=== PATIENT | female | born 1930 | race Caucasian/White ===

== ENCOUNTER 2019-10-17 15:44 | Inpatient (IN) | payer MEDICARE, BC ==
[~2019-10-17] VITALS: Ht 157.5 cm; Wt 56.7 kg
--- NOTE | 2019-10-17 15:50 | NUR ---
PATIENT WAS BIB [facility]. FOR UNWITNESSED FALL WAS FOUND ON THE GROUND. NO KO. NO S/S ANY PAIN NOTED.
--- NOTE | 2019-10-17 15:52 | NUR ---
PATIENT WAS MSE BY DR LOZANO IN ROOM 03A.
[2019-10-17 16:24] LABS: *BILIRUBIN,URIN NEGATIVE (NEGATIVE); *BLOOD, URINE NEGATIVE (NEGATIVE); *CLARITY,URINE CLOUDY (CLEAR); *COLOR,URINE YELLOW (YELLOW); *KETONES,URINE NEGATIVE (NEGATIVE); LEUKOCYTE ESTERASE ,URINE 2+ (NEGATIVE); NITRITE, URINE NEGATIVE (NEGATIVE); PH,URINE >=9.0 (5.0-8.0); UGLUCOSE NEGATIVE (NEGATIVE)
[2019-10-17 16:32] LABS: BASOPHILS # (AUTO) 0.2 K/uL (0.0-8.0); BASOPHILS % (AUTO) 1.3 % (0.0-2.0); EOSINOPHILS # (AUTO) 0.1 K/uL (0.0-0.7); HEMATOCRIT 46.5 % (31.2-41.9); HEMOGLOBIN 15.6 g/dL (10.9-14.3); LYMPHOCYTES # (AUTO) 2.3 K/uL (20.0-40.0); LYMPHOCYTES % (AUTO) 16.5 % (20.5-51.5); MEAN CORPUSCULAR HEMOGLOBIN 26.9 uug (24.7-32.8); MEAN CORPUSCULAR HGB CONC 34 g/dL (32.3-35.6); MEAN CORPUSCULAR VOLUME 79.9 fL (75.5-95.3); MONOCYTES # (AUTO) 0.6 K/uL (2.0-10.0); MONOCYTES % (AUTO) 4.2 % (0.0-11.0); NEUTROPHILS # (AUTO) 10.7 K/uL (1.8-8.9); PLATELET COUNT (AUTO) 270 K/uL (179-408); RED BLOOD CELL COUNT(AUTO) 5.82 MIL/uL (3.63-4.92)
[2019-10-17 16:34] LABS: BACTERIA,URINE MANY /HPF (NONE SEEN); MUCUS,URINE MANY /LPF (0-FEW); SQUAMOUS EPITHELIAL CELL,UR FEW /HPF (NONE SEEN); TRIPLE PHOSPHATE CRYSTAL,UR MANY /HPF (NONE SEEN); WBC,URINE 20-50 /HPF (0-3)
[2019-10-17 16:34] LABS: CREATININE 0.7 mg/dL (0.6-1.3); POTASSIUM 3.2 mmol/L (3.5-5.1)
[2019-10-17 16:42] LABS: BILIRUBIN,DIRECT 0.2 mg/dL (0.0-0.2); BILIRUBIN,TOTAL 1.1 mg/dL (0.2-1.0); TOTAL PROTEIN, SERUM 7.3 g/dL (6.4-8.2)
[2019-10-17] MEDS ORDERED: CEFTRIAXONE 1 G in IV DEXTROSE 5% 50 ML IV ONE (16:45)
[2019-10-17] MEDS ORDERED: IV NS + KCL 40 MEQ 1000 ML BAG IV ONE (16:45)
[2019-10-17] MEDS: POTASSIUM CHLORIDE 40 MEQ in IV NS 1000 ML 1,000 ML IV ONE ×2 (17:15→17:54)
[2019-10-17] MEDS ORDERED: CEFTRIAXONE /D5W 50ML IVPB **ER PYXIS IV ONE (17:18)
--- NOTE | 2019-10-17 17:48 | NUR ---
DR HERNÁNDEZ CALLED BACK SPOKE WITH DR LOZANO PATIENT WAS ACCEPTED FOR ADMISSION.
--- NOTE | 2019-10-17 18:00 | NUR ---
PATIENT IN BED FALL PRECAUTIONS DONE.
--- NOTE | 2019-10-17 19:10 | NUR ---
REPORT GIVE GIVEN TO INCOMING NURSE
--- NOTE | 2019-10-17 19:35 | NUR ---
Received report from AM ER nurse @ 1344. Pending admission. Pt already admitted to Tele, Report was given to Nurse Adeola per AM ER Nurse. Perineal care started, patient with 1x BM, yellowish soft BM. Pt received alert but does not appear oriented. Minimally verbal. Not in any distress. VS taken, admission process initiated.
--- NOTE | 2019-10-17 20:06 | NUR ---
Report given to Vinayak PIÑA for Tele admission.
--- NOTE | 2019-10-17 20:25 | NUR ---
Pt trasnported to Room 314 via gurney in stable condition. Proper precautions followed.
--- NOTE | 2019-10-17 20:30 | NUR ---
Received patient from ER @2024 via [employer]. She was taken to the ER via [facility] after being found on the floor on her back. She has a bruise on the back of the head, and no acute abnormalities were seen in x-ray or CT. Patient was found to have a UTI. Patient is awake and alert, however she is very soft spoken and somewhat confused due to dementia. She arrived on room air without any oxygen and no SOB or distress noted. peripheral IV in the left AC running 0.9% NS +40KCl @75ml/hr. Donato catheter in place due to history of retention. had 2 yellow BMs in the ER. Patient is otherwise in stable condition. This patient comes from [facility], a facility that has sent us COVID-19 positive patients, so as a precaution a chest x-ray was conducted and slight abnormalities were noted within the lung ward, and as such she is on rule out for COVID-19. Special droplet/contact precautions in place.
[2019-10-17 20:40] VITALS: BP 204/83
[2019-10-17] MEDS ORDERED: BISACODYL 10 MG SUPP.RECT RC PRN (20:45)
[2019-10-17] MEDS ORDERED: LORAZEPAM 2 MG/1 ML VIAL IV PRN (20:45)
[2019-10-17] MEDS ORDERED: POLYVINYL ALCOHOL OPHT DROPS 15 ML BOTTLE EACHEYE PRN (20:45)
[2019-10-17] MEDS ORDERED: ACETAMINOPHEN 325 MG TABLET PO PRN (20:45)
[2019-10-17] MEDS ORDERED: MORPHINE SULFATE 2 MG/1 ML DISP.SYRIN IV PRN (20:45)
[2019-10-17] MEDS: METOPROLOL TARTRATE 25 MG TABLET PO SCH (22:27)
[2019-10-17] MEDS: POTASSIUM CHLORIDE 20 MEQ in IV 1/2NS 1000 ML 1,000 ML IV PRN (23:18)
[2019-10-18 00:18] VITALS: BP 149/72
[2019-10-18 04:18] VITALS: BP 136/60
[2019-10-18 06:27] LABS: BASOPHILS # (AUTO) 0.1 K/uL (0.0-8.0); BASOPHILS % (AUTO) 0.6 % (0.0-2.0); EOSINOPHILS # (AUTO) 0.2 K/uL (0.0-0.7); EOSINOPHILS % (AUTO) 2.2 % (0.0-7.0); HEMATOCRIT 43.5 % (31.2-41.9); HEMOGLOBIN 14.6 g/dL (10.9-14.3); LYMPHOCYTES # (AUTO) 2.3 K/uL (20.0-40.0); LYMPHOCYTES % (AUTO) 23.1 % (20.5-51.5); MEAN CORPUSCULAR HEMOGLOBIN 26.9 uug (24.7-32.8); MEAN CORPUSCULAR HGB CONC 34 g/dL (32.3-35.6); MEAN CORPUSCULAR VOLUME 80.3 fL (75.5-95.3); MONOCYTES # (AUTO) 0.5 K/uL (2.0-10.0); NEUTROPHILS % (AUTO) 69.1 % (38.5-71.5); PLATELET COUNT (AUTO) 243 K/uL (179-408); RED BLOOD CELL COUNT(AUTO) 5.42 MIL/uL (3.63-4.92)
[2019-10-18] MEDS: LEVOTHYROXINE SODIUM 137 MCG TABLET PO SCH (06:37)
[2019-10-18 06:42] LABS: WHITE BLOOD COUNT (AUTO) 10.1 K/uL (3.8-11.8)
[2019-10-18 06:48] LABS: THYROID STIMULATING HORMONE 0.386 mIU/mL (0.358-3.740)
[2019-10-18 06:51] LABS: BILIRUBIN,TOTAL 1.3 mg/dL (0.2-1.0); CREATININE 0.8 mg/dL (0.6-1.3); PHOSPHOROUS 2.7 mg/dL (2.5-4.9); POTASSIUM 3.1 mmol/L (3.5-5.1); TOTAL PROTEIN, SERUM 6.5 g/dL (6.4-8.2)
[2019-10-18 06:54] LABS: MAGNESIUM 1.2 mg/dL (1.8-2.4)
[2019-10-18] MEDS: PANTOPRAZOLE SODIUM 40 MG VIAL IV SCH (08:53)
[2019-10-18] MEDS: METOPROLOL TARTRATE 25 MG TABLET PO SCH (08:54)
[2019-10-18] MEDS: GLUCERNA SHAKE VANILLA 237 ML CAN PO SCH ×2 (08:55→17:26)
[2019-10-18] MEDS ORDERED: POTASSIUM CHLORIDE 20 MEQ TAB.PRT.SR PO ONE (09:30)
[2019-10-18] MEDS: MAGNESIUM SULFATE/D5W 100 ML IV SCH ×3 (09:40→12:45)
[2019-10-18] MEDS: METFORMIN HCL 500 MG TABLET PO SCH (12:44)
[2019-10-18 16:10] VITALS: BP 156/66
[2019-10-18] MEDS: CEFTRIAXONE 1 G in IV DEXTROSE 5% 50 ML IV SCH (17:25)
--- NOTE | 2019-10-18 18:49 | NUR ---
PATIENT CALM AND COMFORTABLE THROUGH OUT SHIFT; PATIENT TESTED NEGATIVE COVID UPON MORNING ASSESSMENT; PATIENT WITH STABLE VITAL SIGNS; PATIENT MEDICATION COMPLIANT; PATIENT AT BASELINE MENTAL STATUS ;REPORT GIVEN TO ON COMING NURSE.
[2019-10-18 20:21] VITALS: BP 197/67
[2019-10-18] MEDS: POTASSIUM CHLORIDE 20 MEQ in IV 1/2NS 1000 ML 1,000 ML IV PRN (20:55)
--- NOTE | 2019-10-18 21:00 | NUR ---
Received patient in bed awake, A&Ox1. Patient noted w/ sacral abrasion on L buttocks, R heel nonblanchable redness, wound on L posterior foot and L 2nd toe and R great toe and redness on L and R groin and abdominal fold, no pictures on the chart. All pictures taken and placed on chart for proper documentation
[2019-10-18 21:02] VITALS: BP 146/62
[2019-10-19] VITALS (7 sets, daily range): BP systolic 131–178; BP diastolic 58–71
[2019-10-19] MEDS: hydrALAZINE HCL 25 MG TABLET PO PRN (00:06)
[2019-10-19] MEDS ORDERED: Z GUARD REMEDY PASTE 57 GM TUBE TOP PRN (03:00)
[2019-10-19] MEDS: LEVOTHYROXINE SODIUM 137 MCG TABLET PO SCH (06:21)
[2019-10-19 06:43] LABS: BASOPHILS # (AUTO) 0.1 K/uL (0.0-8.0); BASOPHILS % (AUTO) 0.5 % (0.0-2.0); EOSINOPHILS # (AUTO) 0.2 K/uL (0.0-0.7); EOSINOPHILS % (AUTO) 2.3 % (0.0-7.0); HEMATOCRIT 41.6 % (31.2-41.9); HEMOGLOBIN 13.8 g/dL (10.9-14.3); LYMPHOCYTES # (AUTO) 2.1 K/uL (20.0-40.0); MEAN CORPUSCULAR HEMOGLOBIN 26.7 uug (24.7-32.8); MEAN CORPUSCULAR HGB CONC 33 g/dL (32.3-35.6); MEAN CORPUSCULAR VOLUME 80.4 fL (75.5-95.3); MONOCYTES # (AUTO) 0.5 K/uL (2.0-10.0); MONOCYTES % (AUTO) 4.6 % (0.0-11.0); NEUTROPHILS % (AUTO) 71.6 % (38.5-71.5); PLATELET COUNT (AUTO) 238 K/uL (179-408); RED BLOOD CELL COUNT(AUTO) 5.18 MIL/uL (3.63-4.92); WHITE BLOOD COUNT (AUTO) 9.8 K/uL (3.8-11.8)
--- NOTE | 2019-10-19 06:52 | NUR ---
Patient slept intermittently. No SOB noted. IV on LAC intact and patent w/ IVF infusing. SR on Tele monitor. Turned and repositioned Q2. All needs attended. Will endorse accordingly
[2019-10-19 06:59] LABS: MAGNESIUM 1.6 mg/dL (1.8-2.4); PHOSPHOROUS 2.3 mg/dL (2.5-4.9); POTASSIUM 3.5 mmol/L (3.5-5.1)
--- NOTE | 2019-10-19 07:20 | NUR ---
Received patient in bed awake but doesn't respond to questions or obey commands. On RA with no distress and SOB noted at this time. Left AC 18g flushed and patent but pt keeps bending arms, IVF 1/2NS 20mEq gets occluded at times. Reinforced to keep left arm straight. Donato catheter in place draining clear yellow urine. Bed locked in lowest position with [id number] up. Call light within reach. Will continue to monitor
[2019-10-19] MEDS: PANTOPRAZOLE SODIUM 40 MG VIAL IV SCH (09:42)
[2019-10-19] MEDS: GLUCERNA SHAKE VANILLA 237 ML CAN PO SCH ×2 (09:42→17:59)
[2019-10-19] MEDS ORDERED: NEUTRA PHOS PACKET PO ONE (11:00)
[2019-10-19] MEDS: MAGNESIUM SULFATE/D5W 100 ML IV SCH ×2 (11:57→13:47)
[2019-10-19] MEDS: METFORMIN HCL 500 MG TABLET PO SCH (12:24)
--- NOTE | 2019-10-19 14:00 | NUR ---
Assisted DIAL POLISHER in cleaning and bathing patient. IV site got dislodged. Cleaned wounds, applied xeroform and dressing on sacral wound, mepilex on sacrum, mepilex on bilateral heels.
--- NOTE | 2019-10-19 16:03 | NUR ---
Orthostatic hypotension done. Unable to check v/s while standing cause patient unable to stand.
[2019-10-19] MEDS: CEFTRIAXONE 1 G in IV DEXTROSE 5% 50 ML IV SCH (17:59)
[2019-10-19] MEDS: POTASSIUM CHLORIDE 20 MEQ in IV 1/2NS 1000 ML 1,000 ML IV PRN (22:57)
[2019-10-20 01:04] VITALS: BP 149/67
[2019-10-20 05:44] VITALS: BP 156/66
--- NOTE | 2019-10-20 05:56 | NUR ---
patient slept intermittently. no s/s of acute distress and v/s stable. safety measures in place. will continue plan of care.
[2019-10-20 06:08] LABS: BASOPHILS # (AUTO) 0.1 K/uL (0.0-8.0); BASOPHILS % (AUTO) 0.7 % (0.0-2.0); EOSINOPHILS # (AUTO) 0.2 K/uL (0.0-0.7); EOSINOPHILS % (AUTO) 1.8 % (0.0-7.0); HEMATOCRIT 40.9 % (31.2-41.9); HEMOGLOBIN 13.7 g/dL (10.9-14.3); LYMPHOCYTES # (AUTO) 2.4 K/uL (20.0-40.0); LYMPHOCYTES % (AUTO) 22.2 % (20.5-51.5); MEAN CORPUSCULAR HEMOGLOBIN 26.9 uug (24.7-32.8); MEAN CORPUSCULAR HGB CONC 33 g/dL (32.3-35.6); MEAN CORPUSCULAR VOLUME 80.4 fL (75.5-95.3); MONOCYTES # (AUTO) 0.5 K/uL (2.0-10.0); MONOCYTES % (AUTO) 4.4 % (0.0-11.0); NEUTROPHILS # (AUTO) 7.7 K/uL (1.8-8.9); NEUTROPHILS % (AUTO) 70.9 % (38.5-71.5); PLATELET COUNT (AUTO) 236 K/uL (179-408); RED BLOOD CELL COUNT(AUTO) 5.09 MIL/uL (3.63-4.92); WHITE BLOOD COUNT (AUTO) 10.8 K/uL (3.8-11.8)
[2019-10-20] MEDS: LEVOTHYROXINE SODIUM 137 MCG TABLET PO SCH (06:13)
[2019-10-20] MEDS: PANTOPRAZOLE SODIUM 40 MG TABLET.DR PO SCH (06:14)
[2019-10-20 06:19] LABS: CREATININE 0.7 mg/dL (0.6-1.3); MAGNESIUM 1.7 mg/dL (1.8-2.4); PHOSPHOROUS 2.2 mg/dL (2.5-4.9); POTASSIUM 3.5 mmol/L (3.5-5.1)
[2019-10-20] MEDS: GLUCERNA SHAKE VANILLA 237 ML CAN PO SCH ×2 (09:46→17:39)
[2019-10-20 10:33] VITALS: BP 150/56
[2019-10-20] MEDS ORDERED: MAGNESIUM SULFATE/D5W 100 ML IV ONE (11:00)
[2019-10-20] MEDS: METFORMIN HCL 500 MG TABLET PO SCH (11:22)
[2019-10-20 11:41] VITALS: BP 133/43
[2019-10-20] MEDS ORDERED: POTASSIUM CHLORIDE 50 ML IV SCH (12:15)
[2019-10-20] MEDS ORDERED: NEUTRA PHOS PACKET PO ONE (12:15)
[2019-10-20] MEDS ORDERED: MAGNESIUM SULFATE/D5W 100 ML IV SCH (12:15)
[2019-10-20 15:27] VITALS: BP 133/43
[2019-10-20] MEDS: CEFTRIAXONE 1 G in IV DEXTROSE 5% 50 ML IV SCH (17:39)
--- NOTE | 2019-10-20 20:00 | NUR ---
Received patient asleep. Patient shows no signs or symptoms of distress at this time. Vital signs stable. Bed set to lowest position. Call light within reach. Will continue to monitor patient.
[2019-10-20 20:06] VITALS: BP 116/48
[2019-10-20] MEDS: POTASSIUM CHLORIDE 20 MEQ in IV 1/2NS 1000 ML 1,000 ML IV PRN (22:29)
[2019-10-21 00:03] VITALS: BP 123/55
[2019-10-21 04:18] VITALS: BP 148/72
[2019-10-21 05:59] LABS: BASOPHILS # (AUTO) 0.1 K/uL (0.0-8.0); BASOPHILS % (AUTO) 1.1 % (0.0-2.0); EOSINOPHILS # (AUTO) 0.2 K/uL (0.0-0.7); HEMATOCRIT 40.8 % (31.2-41.9); HEMOGLOBIN 13.6 g/dL (10.9-14.3); LYMPHOCYTES # (AUTO) 2.1 K/uL (20.0-40.0); LYMPHOCYTES % (AUTO) 23.2 % (20.5-51.5); MEAN CORPUSCULAR HEMOGLOBIN 26.6 uug (24.7-32.8); MEAN CORPUSCULAR HGB CONC 33 g/dL (32.3-35.6); MEAN CORPUSCULAR VOLUME 80.1 fL (75.5-95.3); MONOCYTES # (AUTO) 0.4 K/uL (2.0-10.0); MONOCYTES % (AUTO) 4.3 % (0.0-11.0); NEUTROPHILS # (AUTO) 6.2 K/uL (1.8-8.9); NEUTROPHILS % (AUTO) 69.4 % (38.5-71.5); PLATELET COUNT (AUTO) 228 K/uL (179-408); RED BLOOD CELL COUNT(AUTO) 5.09 MIL/uL (3.63-4.92); WHITE BLOOD COUNT (AUTO) 8.9 K/uL (3.8-11.8)
[2019-10-21] MEDS: LEVOTHYROXINE SODIUM 137 MCG TABLET PO SCH (06:11)
[2019-10-21] MEDS: PANTOPRAZOLE SODIUM 40 MG TABLET.DR PO SCH (06:11)
[2019-10-21 06:14] LABS: BILIRUBIN,TOTAL 0.8 mg/dL (0.2-1.0); CREATININE 0.7 mg/dL (0.6-1.3); MAGNESIUM 1.6 mg/dL (1.8-2.4); PHOSPHOROUS 2.5 mg/dL (2.5-4.9); POTASSIUM 3.8 mmol/L (3.5-5.1); TOTAL PROTEIN, SERUM 6.2 g/dL (6.4-8.2)
--- NOTE | 2019-10-21 06:46 | NUR ---
Patient shows no signs or symptoms of distress at this time. Will endorse patient to day nurse in stable condition.
--- NOTE | 2019-10-21 07:30 | NUR ---
PATIENT CALM AND COMFORTABLE UPON INITIAL ASSESSMENT; PATIENT WITH NO SIGNS OF DISTRESS; PATIENT WILL CONTINUE TO BE MONITORED.
[2019-10-21] MEDS: GLUCERNA SHAKE VANILLA 237 ML CAN PO SCH ×2 (08:40→17:10)
[2019-10-21 12:00] VITALS: BP 136/59
[2019-10-21] MEDS: METFORMIN HCL 500 MG TABLET PO SCH (12:31)
[2019-10-21] MEDS: MAGNESIUM SULFATE/D5W 100 ML IV SCH ×2 (12:31→14:42)
--- NOTE | 2019-10-21 14:34 | NUR ---
WOUND CARE CONSULT: PT PRESENTS WITH DRY SCABS AND SCARS TO FEET, SCAR TO RT LOWER BUTTOCK AND STAGE 3 ULCER TO SACRUM WHICH EXTENDS TO LEFT BUTTOCK, ALL PRESENT ON ADMISSION. RECOMMEND SURGICAL CONSULT. DR THUY CULVER NOTIFIED OF CONSULT REQUEST. FIRST STEP LOW AIRLOSS MATTRESS ORDERED. WOUND CARE AND SKIN PROTECTION RECOMMENDATIONS DISCUSSED WITH NURSING STAFF. WILL SEE PRN. QUINTANILLA IN AGREEMENT WITH PLAN OF CARE. Addendum: 10/21/19 at 1435 by SHERRON IRVIN RN Amended: Links added.
[2019-10-21] MEDS: AMOXICILLIN-CLAVUL 500-125MG TABLET PO SCH ×2 (14:47→21:07)
[2019-10-21 16:56] VITALS: BP 111/44
[2019-10-21 20:00] VITALS: BP 135/72
[2019-10-22 05:00] VITALS: BP 150/61
[2019-10-22 06:08] LABS: BASOPHILS # (AUTO) 0.1 K/uL (0.0-8.0); BASOPHILS % (AUTO) 0.6 % (0.0-2.0); EOSINOPHILS # (AUTO) 0.2 K/uL (0.0-0.7); EOSINOPHILS % (AUTO) 2.5 % (0.0-7.0); HEMATOCRIT 41.1 % (31.2-41.9); HEMOGLOBIN 13.4 g/dL (10.9-14.3); LYMPHOCYTES # (AUTO) 2.3 K/uL (20.0-40.0); LYMPHOCYTES % (AUTO) 24.4 % (20.5-51.5); MEAN CORPUSCULAR HEMOGLOBIN 26.4 uug (24.7-32.8); MEAN CORPUSCULAR HGB CONC 33 g/dL (32.3-35.6); MEAN CORPUSCULAR VOLUME 81.1 fL (75.5-95.3); MONOCYTES # (AUTO) 0.5 K/uL (2.0-10.0); MONOCYTES % (AUTO) 5.7 % (0.0-11.0); NEUTROPHILS # (AUTO) 6.2 K/uL (1.8-8.9); NEUTROPHILS % (AUTO) 66.8 % (38.5-71.5); PLATELET COUNT (AUTO) 232 K/uL (179-408); RED BLOOD CELL COUNT(AUTO) 5.07 MIL/uL (3.63-4.92); WHITE BLOOD COUNT (AUTO) 9.4 K/uL (3.8-11.8)
--- NOTE | 2019-10-22 06:17 | NUR ---
END OF SHIFT REPORT Pt rested well in between care; fall and aspiration precaution observed; new dressing to sacrum; will endorse to ff up on low air loss mattress; continue to monitor; continue plan of care.
[2019-10-22 06:25] LABS: CREATININE 0.8 mg/dL (0.6-1.3); MAGNESIUM 1.7 mg/dL (1.8-2.4); PHOSPHOROUS 2.6 mg/dL (2.5-4.9); POTASSIUM 3.9 mmol/L (3.5-5.1)
[2019-10-22] MEDS: PANTOPRAZOLE SODIUM 40 MG TABLET.DR PO SCH (06:26)
[2019-10-22] MEDS: LEVOTHYROXINE SODIUM 137 MCG TABLET PO SCH (06:26)
[2019-10-22] MEDS: GLUCERNA SHAKE VANILLA 237 ML CAN PO SCH ×2 (08:22→17:23)
[2019-10-22] MEDS ORDERED: MAGNESIUM SULFATE/D5W 100 ML IV SCH (10:02)
[2019-10-22] MEDS: METFORMIN HCL 500 MG TABLET PO SCH (11:42)
[2019-10-22 12:00] VITALS: BP 139/41
--- NOTE | 2019-10-22 17:24 | NUR ---
patient discharged home in stable condition back to the [facility] ;patient with stable vital signs; and given discharge instructions ; patient verbalized understanding; patient given paper prescription for uti . patient left with valuables and belongings. Addendum: 10/22/19 at 1903 by RICH BUSH RN note saved under wrong patient
--- NOTE | 2019-10-22 19:05 | NUR ---
patient calm and comfortable through out shift with no signs of distress; patient will continue to be monitored; patient with stable vital signs; report given to oncoming nurse.
--- NOTE | 2019-10-22 19:30 | NUR ---
Received patient awake and alert in bed, A/Ox1. No acute distress noted. No s/s of pain or SOB noted. Vitals WNL. Heplock on the right forearm is intact and patent. Safety measures initiated. Bed is low and locked, call light within reach. Will continue to monitor.
[2019-10-22 20:00] VITALS: BP 127/51
[2019-10-23 05:00] VITALS: BP_SYST 112; BP_SYST 141; BP_DIAS 48; BP_DIAS 56
[2019-10-23 06:13] LABS: BASOPHILS % (AUTO) 0.5 % (0.0-2.0); EOSINOPHILS # (AUTO) 0.2 K/uL (0.0-0.7); EOSINOPHILS % (AUTO) 2.5 % (0.0-7.0); HEMATOCRIT 40.4 % (31.2-41.9); HEMOGLOBIN 13.6 g/dL (10.9-14.3); LYMPHOCYTES # (AUTO) 1.9 K/uL (20.0-40.0); LYMPHOCYTES % (AUTO) 21.1 % (20.5-51.5); MEAN CORPUSCULAR HEMOGLOBIN 27.1 uug (24.7-32.8); MEAN CORPUSCULAR HGB CONC 34 g/dL (32.3-35.6); MEAN CORPUSCULAR VOLUME 80.6 fL (75.5-95.3); MONOCYTES # (AUTO) 0.5 K/uL (2.0-10.0); NEUTROPHILS # (AUTO) 6.4 K/uL (1.8-8.9); NEUTROPHILS % (AUTO) 70.9 % (38.5-71.5); PLATELET COUNT (AUTO) 232 K/uL (179-408); RED BLOOD CELL COUNT(AUTO) 5.01 MIL/uL (3.63-4.92); WHITE BLOOD COUNT (AUTO) 9.1 K/uL (3.8-11.8)
[2019-10-23] MEDS: PANTOPRAZOLE SODIUM 40 MG TABLET.DR PO SCH (06:18)
[2019-10-23] MEDS: LEVOTHYROXINE SODIUM 137 MCG TABLET PO SCH (06:18)
[2019-10-23 06:24] LABS: CREATININE 0.7 mg/dL (0.6-1.3); MAGNESIUM 1.5 mg/dL (1.8-2.4); PHOSPHOROUS 2.9 mg/dL (2.5-4.9); POTASSIUM 3.6 mmol/L (3.5-5.1)
[2019-10-23] MEDS: GLUCERNA SHAKE VANILLA 237 ML CAN PO SCH ×2 (09:37→16:40)
[2019-10-23 11:00] VITALS: BP 140/56
[2019-10-23] MEDS: METFORMIN HCL 500 MG TABLET PO SCH (11:42)
[2019-10-23] MEDS: MAGNESIUM SULFATE/D5W 100 ML IV SCH ×2 (11:47→12:10)
[2019-10-23] MEDS: hydrALAZINE HCL 25 MG TABLET PO PRN (16:39)
[2019-10-23 17:03] VITALS: BP 156/76
[2019-10-23 21:13] VITALS: BP 149/53
[2019-10-24 01:12] VITALS: BP 178/68
[2019-10-24 03:55] VITALS: BP 169/60
[2019-10-24] MEDS: LEVOTHYROXINE SODIUM 137 MCG TABLET PO SCH (05:54)
[2019-10-24] MEDS: PANTOPRAZOLE SODIUM 40 MG TABLET.DR PO SCH (05:54)
[2019-10-24 06:45] LABS: CREATININE 0.8 mg/dL (0.6-1.3); MAGNESIUM 1.4 mg/dL (1.8-2.4); POTASSIUM 3.6 mmol/L (3.5-5.1)
--- NOTE | 2019-10-24 06:55 | NUR ---
END OF SHIFT REPORT Pt rested well in between care; no acute distress; repositioned q2h; needs attended; safety maintained.
[2019-10-24] MEDS: GLUCERNA SHAKE VANILLA 237 ML CAN PO SCH (09:08)
[2019-10-24] MEDS: METFORMIN HCL 500 MG TABLET PO SCH (11:22)
[2019-10-24 12:00] VITALS: BP 146/61
[2019-10-24] MEDS ORDERED: MAGNESIUM SULFATE/D5W 100 ML IV SCH (12:00)
[2019-10-24] MEDS ORDERED: MAGNESIUM OXIDE 400 MG TABLET PO ONE (12:00)
[2019-10-24] MEDS ORDERED: AMLODIPINE 5 MG TABLET PO SCH (13:00)
[2019-10-24 15:47] VITALS: BP 117/61
--- NOTE | 2019-10-24 16:19 | NUR ---
dc orders received noted and carried out,dc instruction and rn report given to the usp,pt left the facility via ambulances in stable condition
== END 2019-10-24 16:20 | DRG 871 ==
LOC: ER 15:48 → TELE3 19:52 → MEDSURG3 10-21 15:00
PROVIDERS: ADMIT Internal Medicine; ATTEND Registered Nurse
DX: A41.9 Sepsis, unspecified organism (principal); L89.153 Pressure ulcer of sacral region, stage 3; I50.33 Acute on chronic diastolic (congestive) heart failure; N39.0 Urinary tract infection, site not specified; E87.2 Acidosis; G93.40 Encephalopathy, unspecified; D68.69 Other thrombophilia; S00.01XA Abrasion of scalp, initial encounter; W19.XXXA Unspecified fall, initial encounter; F03.90 Unspecified dementia, unspecified severity, without behavioral disturbance, psychotic disturbance, mood disturbance, and anxiety; E03.9 Hypothyroidism, unspecified; E05.00 Thyrotoxicosis with diffuse goiter without thyrotoxic crisis or storm; I11.0 Hypertensive heart disease with heart failure; B96.4 Proteus (mirabilis) (morganii) as the cause of diseases classified elsewhere; E78.5 Hyperlipidemia, unspecified; E83.42 Hypomagnesemia; E87.6 Hypokalemia; F32.9 Major depressive disorder, single episode, unspecified; G89.29 Other chronic pain; Z88.1 Allergy status to other antibiotic agents; R13.10 Dysphagia, unspecified; B96.20 Unspecified Escherichia coli [E. coli] as the cause of diseases classified elsewhere; K21.9 Gastro-esophageal reflux disease without esophagitis; K76.89 Other specified diseases of liver; M48.02 Spinal stenosis, cervical region; Z79.890 Hormone replacement therapy; Z79.4 Long term (current) use of insulin; D46.9 Myelodysplastic syndrome, unspecified; E11.9 Type 2 diabetes mellitus without complications; I35.0 Nonrheumatic aortic (valve) stenosis; R55 Syncope and collapse; T50.2X5A Adverse effect of carbonic-anhydrase inhibitors, benzothiadiazides and other diuretics, initial encounter; Y92.89 Other specified places as the place of occurrence of the external cause; R33.9 Retention of urine, unspecified
CPT/HCPCS: 36415; 70030-TC; 70450; 71045; 72125; 73502; 83550; 83605; 83735; 84100; 84443; 85025; 85730; 87077; 87086; 93005; 93307; A4663; C9113; G0378; J0696; J3475; J3480; J3490; J7030; J7040; J7060